=== PATIENT | female | born 1950 | race Caucasian/White ===

== ENCOUNTER → 2017-03-14 15:26 | Emergency (ER) | payer MEDICARE, BC ==
[~2017-03-14 15:26] MED LIST: HYDROcodone/ACETAMIN 5-325 MG* 1 TAB PO ONE; Ketorolac INJ* 30 MG/ML 1 ML VIAL IM ONE; oxyCODONE/Acetamin 5/325 MG* TAB PO ONE
--- NOTE | 2017-03-14 16:20 | ED ---
Complex/Multi-Sys Presentation - HPI Summary HPI Summary: 66 female presents with complaints of left wrist/lower arm and left knee pain that began after a fall that occurred around 8:30am this morning 03/14/17. Patient states she was walking off her porch and took a step however there was no step there. She fell landing on concrete on her left side. States any movement of her left knee causes her pain and her left wrist. Denies hitting her head and no LOC. Patient states the pain is a 9/10. Admits to swelling of left wrist. Denies chest pain, difficulty breathing, syncope and abdominal pain. No other complaints at this time. PMHx significant for HTN and arthritis. Has not taken any medications. Denies hip, neck and back pain. Is able to bear weight however when walking causes knee pain to increase. Denies numbness/ tingling. - History Of Current Complaint Chief Complaint: EDExtremityUpper Time Seen by Provider: 03/14/17 15:45 Hx Obtained From: Patient Onset/Duration: Sudden Onset, Still Present, Worse Since Timing: Constant Severity Currently: Moderate - no radiation Severity Initially: Moderate Location: Pain At: - left wrist and left knee Character: Sharp, Throbbing Aggravating Factor(s): moving Alleviating Factor(s): rest Associated Signs And Symptoms: Positive: Other - swelling of left wrist - Allergies/Home Medications Allergies/Adverse Reactions: Allergies Allergy/AdvReac Type Severity Reaction Status Date / Time No Known Allergies Allergy Verified 02/08/15 07:08 PMH/Surg Hx/FS Hx/Imm Hx Endocrine/Hematology History: Denies: Hx Diabetes Cardiovascular History: Reports: Hx Hypertension Denies: Hx Congestive Heart Failure History: Reports: Other Problems/Disorders - HEMATURIA Musculoskeletal History: Reports: Hx Arthritis - RIGHT FOOT, KNEE, LEG Denies: Hx Osteoporosis Sensory History: Reports: Hx Contacts or Glasses - READING GLASSES Denies: Hx Hearing Aid Opthamlomology History: Reports: Hx Contacts or Glasses - READING GLASSES - Cancer History Cancer Type, Location and Year: breast and kidney Hx Chemotherapy: Yes - KIDNEY Hx Radiation Therapy: Yes - BREAST - Surgical History Surgery Procedure, Year, and Place: 1978 uterine suspension, [facility] [place]. 2009 RT breast lumpectomy [place]. AUGUST 2014 LEFT NEPHRECTOMY Hx Anesthesia Reactions: No - Immunization History Immunizations Up to Date: Yes Infectious Disease History: No Infectious Disease History: Denies: Traveled Outside the [place] in Last 30 Days - Family History Known Family History: Positive: None - Social History Alcohol Use: None Alcohol Amount: 4 DRINKS/DAY Substance Use Type: Reports: None Smoking Status (MU): Heavy Every Day Tobacco Smoker Type: Cigarettes Amount Used/How Often: 1 PPD [id number] Length of Time of Smoking/Using Tobacco: 9 YRS Have You Smoked in the Last Year: Yes Review of Systems Constitutional: Negative Eyes: Negative ENT: Negative Cardiovascular: Negative Respiratory: Negative Gastrointestinal: Negative Positive: Arthralgia, Myalgia, Decreased ROM - left knee, Edema - left wrist Skin: Negative Neurological: Negative All Other Systems Reviewed And Are Negative: Yes Physical Exam Triage Information Reviewed: Yes Vital Signs On Initial Exam: Initial Vitals Temp Pulse Resp BP Pulse Ox 97.8 F 79 20 129/66 96 03/14/17 15:32 03/14/17 15:32 03/14/17 15:32 03/14/17 15:32 03/14/17 15:32 Vital Signs Reviewed: Yes Appearance: Positive: Well-Appearing, No Pain Distress, Well-Nourished Skin: Positive: Warm, Skin Color Reflects Adequate Perfusion, Dry. Negative: Cold, Numb, Soft, Erythema @ Head/Face: Positive: Normal Head/Face Inspection Eyes: Positive: Normal, Conjunctiva Clear ENT: Positive: Normal ENT inspection, Hearing grossly normal Neck: Positive: Supple, Nontender Respiratory/Lung Sounds: Positive: Clear to Auscultation, Breath Sounds Present. Negative: Rales, Rhonchi, Wheezes Cardiovascular: Positive: Normal, RRR, Pulses are Symmetrical in both Upper and Lower Extremities - 2+ pedal and radial. <2 seconds cap refill. Negative: Murmur, Rub Abdomen Description: Positive: Nontender, Soft Bowel Sounds: Positive: Present Musculoskeletal: Positive: Limited @ - left wrist and left knee with all directions due to pain, knee better with passive however wrist pain with any movement, Interruption @ - obvious deformity of distal radius/wrist area. crepitus, step off. no ecchymosis. edema of left wrist. elbow, forearm and shoulder normal. left knee normal without any deformity, ecchymosis, edema or step off., Pain @ - left wrist and left knee posteriorly, Edema Left - wrist, Other - rest of extremities/ right side/ neck / back normal exam without signs of trauma Neurological: Positive: Normal, Sensory/Motor Intact - sensation intact all extremities, Alert, Oriented to Person Place, Time, CN Intact II-III, Reflexes Intact, NV Bundle Intact Distally, Normal Gait Psychiatric: Positive: Affect/Mood Appropriate AVPU Assessment: Alert - Wilder Coma Scale Best Eye Response: 4 - Spontaneous Best Motor Response: 6 - Obeys Commands Best Verbal Response: 5 - Oriented Procedures - Splinting Location: left forearm Hand-Made Type: plaster Splint: sugar-tong Pre-Proc Neuro Vasc Exam: normal Post-Proc Neuro Vasc Exam: normal, unchanged from pre-exam Diagnostics - Vital Signs Vital Signs Temp Pulse Resp BP Pulse Ox 03/14/17 15:39 98.9 F 75 18 124/67 94 03/14/17 15:32 97.8 F 79 20 129/66 96 - Laboratory Lab Statement: Any lab studies that have been ordered have been reviewed, and results considered in the medical decision making process. - Radiology left elbow Xray Interpretation: No Acute Changes - NO ACUTE OSSEOUS INJURY. IF SYMPTOMS PERSIST, RECOMMEND REPEAT IMAGING. Radiology Interpretation Completed By: Radiologist left wrist Xray Interpretation: Positive (See Comments) - MINIMALLY DISPLACED COMMINUTED FRACTURE OF THE DISTAL RADIAL METAPHYSIS WITH ARTICULAR EXTENSION. OSTEOARTHRITIS. Radiology Interpretation Completed By: Radiologist left forearm Xray Interpretation: Positive (See Comments) - MINIMALLY DISPLACED FRACTURE OF THE DISTAL RADIUS Radiology Interpretation Completed By: Radiologist left knee Xray Interpretation: No Acute Changes - NO ACUTE OSSEOUS INJURY. IF SYMPTOMS PERSIST, RECOMMEND REPEAT IMAGING. Radiology Interpretation Completed By: Radiologist Re-Evaluation - Re-Evaluation First Eval Re-Evaluation Time: 17:31 Change: Improved - some relief after medicaiton however still in pain and discomfort Complex Multi-Symp Course/Dx Course Of Treatment: patient given norco for pain management as she has one kidney and refrained from IV and renal excreting drugs. had relief. x-rays obtained. all negative besides left forearm and wrist that showed a minimally displace distal radius fracture. was splinted with sugra tong splint without complication. normal neruo-vasc both before and after. follow up ortho. given sling for comfort. knee immobilizer to help with knee injury/pain until further imaging is obtained. possibly ligamentous/meniscal. given pain management for at home. RICE and follow up. Aware of worsening signs and symptoms to watch out for. - Diagnoses Differential Diagnoses/HQI/PQRI: Other - fracture, dislocation, sprain, strain Provider Diagnoses: Distal radius fracture, left Discharge - Discharge Plan Condition: Stable Disposition: HOME Prescriptions: HYDROcodone/ACETAMIN 5-325 MG* [[place] 5-325 TAB*] 1 tab PO Q4H PRN #15 tab MDD 3 PRN Reason: Pain Naproxen TAB* [Naprosyn 375 mg TAB*] 375 mg PO Q8H PRN #30 tab PRN Reason: Pain Patient Education Materials: Wrist Fracture in Adults (ED) Referrals: Javid Ceja MD [Primary Care Provider] - Jose Esparza MD [Medical Doctor] - Additional Instructions: Take prescribed medication to help with pain and inflammation. Take naproxen every 6-8 hours and norco in between doses. Take with food. Do not drive while taking this medication. Elevate ice and rest arm. Do not get splint wet. Wear sling for support. Make an appointment with orthopedic within the next couple of days. Follow up with PCP. If splint feels too tight or your develop worsening symptoms please seek medical attention promptly.
--- NOTE | 2017-03-14 17:03 | RAD ---
HISTORY: Left elbow injury COMPARISONS: None VIEWS: 3, Frontal, lateral, and oblique views of the left elbow FINDINGS: BONE DENSITY: There is diffuse osteopenia. BONES: There is no displaced fracture. JOINTS: There is no arthropathy. ALIGNMENT: There is no dislocation. SOFT TISSUES: Unremarkable. OTHER FINDINGS: None. IMPRESSION: NO ACUTE OSSEOUS INJURY. IF SYMPTOMS PERSIST, RECOMMEND REPEAT IMAGING.
--- NOTE | 2017-03-14 17:04 | RAD ---
HISTORY: Left forearm injury, trauma COMPARISONS: None VIEWS: 2, Frontal and lateral views of the left forearm FINDINGS: BONE DENSITY: There is diffuse osteopenia. BONES: There is a minimally displaced fracture of the distal radial metaphysis with articular extension. 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 SOFT TISSUES: Unremarkable. OTHER FINDINGS: None. IMPRESSION: MINIMALLY DISPLACED FRACTURE OF THE DISTAL RADIUS
--- NOTE | 2017-03-14 17:05 | RAD ---
HISTORY: Left wrist injury, trauma COMPARISONS: None VIEWS: 3, Frontal, lateral, and oblique views of the left wrist FINDINGS: BONE DENSITY: There is diffuse osteopenia. BONES: There is a minimally displaced, comminuted fracture of the distal radial metaphysis with articular extension. JOINTS: There is osteoarthritis of the first CMC and scaphoid-trapezium articulations ALIGNMENT: There is no dislocation. SOFT TISSUES: Unremarkable. OTHER FINDINGS: None. IMPRESSION: MINIMALLY DISPLACED COMMINUTED FRACTURE OF THE DISTAL RADIAL METAPHYSIS WITH ARTICULAR EXTENSION. OSTEOARTHRITIS.
--- NOTE | 2017-03-14 17:18 | RAD ---
HISTORY: Left knee injury COMPARISONS: None VIEWS: 4, Frontal, lateral, axial, and oblique views of the left knee FINDINGS: BONE DENSITY: Normal. BONES: There is no displaced fracture. JOINTS: There is mild tricompartmental osteoarthritis. There is no suprapatellar joint effusion or lipohemarthrosis. ALIGNMENT: There is no dislocation. SOFT TISSUES: Unremarkable. OTHER FINDINGS: None. IMPRESSION: NO ACUTE OSSEOUS INJURY. IF SYMPTOMS PERSIST, RECOMMEND REPEAT IMAGING.
[2017-03-14 18:15] VITALS: BP 146/79
== END | disposition home or self-care (01) ==
LOC: ED 15:26
DX: S52.502A Unspecified fracture of the lower end of left radius, initial encounter for closed fracture (principal); W19.XXXA Unspecified fall, initial encounter; Y93.9 Activity, unspecified; Y92.9 Unspecified place or not applicable; M19.032 Primary osteoarthritis, left wrist; M25.562 Pain in left knee; I10 Essential (primary) hypertension; Z85.3 Personal history of malignant neoplasm of breast; Z85.528 Personal history of other malignant neoplasm of kidney; Z90.5 Acquired absence of kidney; F17.210 Nicotine dependence, cigarettes, uncomplicated
CPT/HCPCS: 96372; 99282; A9270-GY

== ENCOUNTER 2017-10-30 06:45 | Day surgery (SDC) | payer MEDICARE, BC ==
[~2017-10-30 06:45] MED LIST changes: +Buffered Lidocaine 0.9% SYRIN* 5 ML/SYR SYRINGE INTRADERM ONE; -HYDROcodone/ACETAMIN 5-325 MG* 1 TAB PO ONE; -Ketorolac INJ* 30 MG/ML 1 ML VIAL IM ONE; +Sodium Citrate/Citric Acid* 15 ML UDC PO ONE; -oxyCODONE/Acetamin 5/325 MG* TAB PO ONE
[2017-10-30] MEDS ORDERED: Buffered Lidocaine 0.9% SYRIN* 5 ML/SYR SYRINGE ONE (07:10)
[2017-10-30] MEDS ORDERED: Lidocaine 2.5%/Prilocain 2.5%* 5 GM TUBE ONE (07:10)
--- NOTE | 2017-10-30 09:19 | RAD ---
PROCEDURE: Ultrasound-guided needle/wire localization of the left breast PREOPERATIVE DIAGNOSIS: Breast cancer POSTOPERATIVE DIAGNOSIS: Same COMPARISONS: October 04, 2012 LABEL REMOVER: Juli Tucker MD ANESTHESIA: Local anesthesia with 1% lidocaine without epinephrine FLUOROSCOPY TIME: None CONTRAST: None PROCEDURAL NARRATIVE: The procedure was explained to the patient who indicated understanding. Written and verbal informed consent was obtained. An opportunity was given to ask and answer questions. A timeout was performed. The patient was prepped and draped in the usual sterile fashion. Using ultrasound guidance, a needle/wire localization system was advanced to the target lesion in the left breast. Once position was confirmed, the needle was removed using pin pull technique. Post localization mammography was performed. The wound was dressed and the wire was secured. FINDINGS: Spot images of the straight wire within the hypoechoic nodule of the 7:00 position of the left breast. Post biopsy mammography demonstrates the hookwire neck in close proximity to the biopsy marker clip in the left lower breast.. SPECIMENS: Pending COMPLICATIONS: None DISPOSITION: The patient tolerated the procedure well, without complications during or immediately following the procedure. The patient was sent to the nuclear medicine suite in good, stable condition. IMPRESSION: TECHNICALLY SUCCESSFUL, UNCOMPLICATED ULTRASOUND-GUIDED WIRE LOCALIZATION OF THE LEFT BREAST. HISTOLOGY IS PENDING
[2017-10-30] MEDS ORDERED: ceFAZolin 2 GM in 100 MLS NS (*) BAG IVPB ONE (11:41)
[2017-10-30] MEDS ORDERED: Ketorolac INJ* 30 MG/ML 1 ML VIAL ONE (11:41)
[2017-10-30] MEDS ORDERED: Sodium Citrate/Citric Acid* 15 ML UDC ONE (11:44)
--- NOTE | 2017-10-30 11:51 | RAD ---
HISTORY: Breast cancer. Lymphoscintigraphy of the breast for the purposes of sentinel node identification. COMPARISONS: Mammogram dated October 30, 2012 TECHNIQUE: Previous imaging was reviewed. The procedure was explained to the patient who indicated that she understood. Written and verbal informed consent was obtained, with an opportunity to ask and answer questions. The breast was marked. A timeout was performed. The patient was prepped and draped in the usual sterile fashion. Technetium 99m sulfur colloid was administered in a subdermal fashion in 4 divided aliquots in a 180 degree arc along the areolar margin of the left breast, centered on the position of the primary breast lesion. Cine and planar imaging was performed. . DOSE: Technetium 99m sulfur colloid, 0.317 millicuries, injected at 9:05 AM October 30, 2017 FINDINGS: At 2 hours postinjection, there is no uptake localized within the left axilla. There is uptake noted along the inferior margin of the facet injection.. OTHER: None IMPRESSION: NO UPTAKE IS NOTED WITHIN THE LEFT AXILLA AT 2 HOURS POSTINJECTION.. CPT II Codes: 4396F1B
[2017-10-30] MEDS ORDERED: Methylene Blue 0.5 %* 50 MG/10 ML AMP IV ONE (12:24)
[2017-10-30] MEDS ORDERED: Bupivacaine 0.25% SDV* 30 ML ONE ×2 (12:24→13:28)
[2017-10-30] MEDS ORDERED: Lidocaine 1% INJ* 10 MG/ML 30 ML SDV ONE (12:28)
[2017-10-30] MEDS ORDERED: Bupivacaine 0.5% SDV PF* 10-30ML VIAL ONE (12:28)
[2017-10-30] MEDS ORDERED: Lidocaine 1% MPF wEPI 200,000* 30 ML SDV ONE (12:49)
[2017-10-30] MEDS ORDERED: fentaNYL* 50 MCG/ML 2 ML VIAL (100 MCG VIAL) ONE (13:20)
[2017-10-30] MEDS ORDERED: Midazolam* 1 MG/ML 2 ML VIAL (2 MG) ONE (13:20)
[2017-10-30] MEDS ORDERED: Propofol* 10 MG/ML 20 ML BTL IV PUSH ONE (13:21)
[2017-10-30] MEDS ORDERED: Lidocaine 2% PF * 5 ML VIAL ONE (13:21)
[2017-10-30] MEDS ORDERED: fentaNYL* 50 MCG/ML 2 ML VIAL (100 MCG VIAL) IV PRN (14:12)
[2017-10-30] MEDS ORDERED: Naloxone* 0.4 MG/ML 1 ML VIAL IV PRN (14:12)
[2017-10-30] MEDS ORDERED: DiMENhydriNATE IV* 50 MG/ML VIAL IV PUSH PRN (14:12)
[2017-10-30] MEDS ORDERED: oxyCODONE/Acetamin 5/325 MG* TAB PO PRN (15:30)
[2017-10-30] MEDS ORDERED: Levalbuterol 0.63MG/3ML NEB* UNIT OF USE INH ONE (16:11)
[2017-10-30 16:40] VITALS: BP 120/74
--- NOTE | 2017-10-31 13:33 | OP ---
CC: Kim Elder MD; Mikhail Wiley MD; Javid Ceja MD DATE OF OPERATION: 10/30/17 - [facility] DATE OF : 52 SURGEON: Jace Yadav MD BUSINESS SERVICES ASSOCIATE: ELIZABETH Darling ANESTHESIOLOGIST: Dr. Mathew. ANESTHESIA: General anesthetic, local infiltration. PRE-OP DIAGNOSIS: Carcinoma of the left breast. POST-OP DIAGNOSIS: Carcinoma of the left breast. OPERATIVE PROCEDURE: Needle localizing wide excision of left breast cancer with axillary node dissection (attempted sentinel node biopsy). DESCRIPTION OF PROCEDURE: The patient was supine on the operative table. After adequate the general anesthetic, compression stockings, Heidy Hugger warmers and intravenous antibiotics, the left breast was prepped with antiseptic , draped in a sterile fashion. (Note that prior to entering the operating room, the patient had subdermal injection of methylene blue 2 mL performed. She had a lot of pain with the injection, so this was curtailed at 2 mL; this was done intradermally). The patient was supine on the operative table and elliptical incision was created encompassing the guidewire and encompassing the site of the dermal injection and a piece of breast tissue was taken down to the fascia and sent fresh to x-ray, it was marked with the usual localizing sutures, it did appear to be close to the wire, so additional tissue one labeled additional deep medial and another labeled additional superior or anterior medial were taken and sent separately as well. Hemostasis was obtained using electrocautery and closure accomplished with 3-0 and 5-0 Vicryl followed by Steri-Strips. Attention was then turned to the axilla, approximately 4- cm incision was created. Dissection was carried down to the axillary fat pad. Inspection was carried out. No identification of blue dye could be accomplished; therefore, it was decided that axillary dissection would be carried out. This was carried out without difficulty. The nerves were kept out of harm's way. Specimen was sent in formalin for pathologic evaluation, labeled axillary contents. Local anesthetic was administered and closure accomplished using 3-0 and 5-0 Vicryl followed by Steri-Strips. She tolerated the procedure well, was awakened and brought to Recovery in good condition. No complications. No drains. Pathologic specimens were as enumerated above. Sponge and instrument counts were correct. Estimated blood loss 50 mL. [id number]/[facility] #: [id number] [facility] [place] [facility]
== END 2017-10-30 16:42 | disposition home or self-care (01) ==
LOC: SDS 06:45
PROVIDERS: ATTEND Surgery
DX: C50.512 Malignant neoplasm of lower-outer quadrant of left female breast (principal); F17.210 Nicotine dependence, cigarettes, uncomplicated; F41.8 Other specified anxiety disorders; Z85.528 Personal history of other malignant neoplasm of kidney; M81.0 Age-related osteoporosis without current pathological fracture
CPT/HCPCS: 77061; 78195; 88307; A9270-GY; A9541; G0279; J1885; J2001; J2250; J2704; J3010; J7614

== ENCOUNTER 2020-04-15 09:04 | Inpatient (IN) ==
[2020-04-15] MEDS ORDERED: HYDROcodone/ACETAMIN 5/325 mg TAB PO ONE (11:20)
[2020-04-15 13:03] LABS: ABS Lymphocytes 0.8 10^3/ul (1.0-4.8); ABS Monocytes 0.4 10^3/ul (0-0.8); Eosinophil % 0.5 %; Hematocrit 37 % (35-47); Lymphocyte % 10.6 %; Mean Corpuscular HGB Conc 35 g/dL (31-36); Mean Corpuscular Hemoglobin 37 pg (27-31); Mean Corpuscular Volume 105 fL (80-97); Mean Platelet Volume 7.3 fL (7.4-10.4); Nucleated Red Blood Cells % 0.1; Platelet Count 367 10^3/uL (150-450); Red Blood Count 3.56 10^6 /uL (3.70-4.87); Red Cell Distribution Width 15 % (10-15); White Blood Count 7.3 10^3/uL (3.5-10.8)
[2020-04-15 13:25] LABS: Albumin 3.7 g/dL (3.2-5.2); Albumin/Globulin Ratio 1.4 (1-3); BUN/Creatinine Ratio 11.4 (8-20); C Reactive Protein 18.5 mg/L (<8.01); Calcium 9.8 mg/dL (8.6-10.3); EGFR African American 63.1 (>60); EGFR Non-African American 52.1 (>60); Globulin 2.7 g/dL (2-4); Potassium 4.5 mmol/L (3.5-5.0); Total Bilirubin 0.5 mg/dL (0.2-1.0); Total Protein 6.4 g/dL (6.4-8.9)
[2020-04-15] MEDS ORDERED: Morphine 2 MG/ML SYRINGE IV PRN (13:52)
[2020-04-15] MEDS ORDERED: Al Hydrox/Mg Hydrox/Simet LIQ 30 ML UDC PO PRN (13:52)
[2020-04-15] MEDS ORDERED: Albuterol 2.5mg/3 ml (0.083%) NEB.SOLN INH PRN (13:52)
[2020-04-15] MEDS: Nicotine PATCH 21 MG/24 HR PATCH TRANSDERM SCH (14:09)
[2020-04-15] MEDS: Multivitamins/Minerals TAB PO SCH (14:21)
[2020-04-15] MEDS: oxyCODONE/Acetamin 5/325 mg TAB PO PRN (16:14)
[2020-04-15] MEDS: Heparin 5000 UNITS/ML 1 mL VIAL SUBCUT SCH ×2 (16:15→21:51)
[2020-04-15] MEDS ORDERED: Gadoteridol (CONTRAST) 279.3 MG/ML 10 ML IV ONE (19:53)
[2020-04-16] MEDS: Heparin 5000 UNITS/ML 1 mL VIAL SUBCUT SCH ×3 (05:54→21:15)
[2020-04-16] MEDS: Nicotine PATCH 21 MG/24 HR PATCH TRANSDERM SCH (09:03)
[2020-04-16] MEDS: Cholecalciferol (VIT D3) 1,000 unit TAB PO SCH (09:03)
[2020-04-16] MEDS: Multivitamins/Minerals TAB PO SCH (09:03)
[2020-04-16] MEDS: Venlafaxine XR 75 mg PO SCH (09:03)
[2020-04-16] MEDS: CMCS: Letrozole 2.5 MG TAB (NF) PO SCH (12:11)
[2020-04-16] MEDS: oxyCODONE/Acetamin 5/325 mg TAB PO PRN (14:16)
[2020-04-16] MEDS ORDERED: oxyCODONE/Acetamin 5/325 mg TAB PO ONE (14:19)
[2020-04-17] MEDS: Heparin 5000 UNITS/ML 1 mL VIAL SUBCUT SCH (05:12)
[2020-04-17 06:09] LABS: BUN/Creatinine Ratio 16.8 (8-20); Calcium 9.7 mg/dL (8.6-10.3); EGFR African American 61.7 (>60); Potassium 4.7 mmol/L (3.5-5.0)
[2020-04-17 06:36] LABS: ABS Basophils 0.2 10^3/ul (0-0.2); ABS Eosinophils 0.1 10^3/ul (0-0.6); ABS Lymphocytes 0.8 10^3/ul (1.0-4.8); ABS Monocytes 0.4 10^3/ul (0-0.8); ABS Neutrophils 2.6 10^3/ul (1.5-7.7); Eosinophil % 2.8 %; Hematocrit 36 % (35-47); Hemoglobin 12.4 g/dL (12.0-16.0); Lymphocyte % 19.6 %; Mean Corpuscular HGB Conc 34 g/dL (31-36); Mean Corpuscular Hemoglobin 36 pg (27-31); Mean Corpuscular Volume 106 fL (80-97); Mean Platelet Volume 7.7 fL (7.4-10.4); Nucleated Red Blood Cells % 0.1; Platelet Count 289 10^3/uL (150-450); Red Blood Count 3.41 10^6 /uL (3.70-4.87); Red Cell Distribution Width 15 % (10-15)
[2020-04-17] MEDS: Cholecalciferol (VIT D3) 1,000 unit TAB PO SCH (08:59)
[2020-04-17] MEDS: oxyCODONE/Acetamin 5/325 mg TAB PO PRN ×4 (08:59→21:49)
[2020-04-17] MEDS: Multivitamins/Minerals TAB PO SCH (08:59)
[2020-04-17] MEDS: CMCS: Letrozole 2.5 MG TAB (NF) PO SCH (09:00)
[2020-04-17] MEDS: Nicotine PATCH 21 MG/24 HR PATCH TRANSDERM SCH (09:00)
[2020-04-17] MEDS: Venlafaxine XR 75 mg PO SCH (09:00)
[2020-04-17] MEDS: Enoxaparin 40 MG/0.4 ML SYR SUBCUT SCH (20:45)
[2020-04-18] MEDS: oxyCODONE/Acetamin 5/325 mg TAB PO PRN (10:02)
[2020-04-18] MEDS: Venlafaxine XR 75 mg PO SCH (10:03)
[2020-04-18] MEDS: Cholecalciferol (VIT D3) 1,000 unit TAB PO SCH (10:04)
[2020-04-18] MEDS: Multivitamins/Minerals TAB PO SCH (10:04)
[2020-04-18] MEDS: CMCS: Letrozole 2.5 MG TAB (NF) PO SCH (10:04)
[2020-04-18] MEDS: Nicotine PATCH 21 MG/24 HR PATCH TRANSDERM SCH (10:06)
[2020-04-18] MEDS: Enoxaparin 40 MG/0.4 ML SYR SUBCUT SCH (20:24)
[2020-04-19 06:43] LABS: Calcium 9.9 mg/dL (8.6-10.3); EGFR African American 66.7 (>60); EGFR Non-African American 55.1 (>60); Potassium 4.9 mmol/L (3.5-5.0)
[2020-04-19] MEDS: Cholecalciferol (VIT D3) 1,000 unit TAB PO SCH (09:22)
[2020-04-19] MEDS: CMCS: Letrozole 2.5 MG TAB (NF) PO SCH (09:22)
[2020-04-19] MEDS: Venlafaxine XR 75 mg PO SCH (09:22)
[2020-04-19] MEDS: Multivitamins/Minerals TAB PO SCH (09:22)
[2020-04-19] MEDS: Nicotine PATCH 21 MG/24 HR PATCH TRANSDERM SCH (09:27)
[2020-04-19 11:13] VITALS: BP 132/72
== END 2020-04-19 14:50 | disposition home health service (06) | DRG 544 ==
LOC: MED 09:04 → ED 09:04 → MED 16:06
PROVIDERS: ADMIT Internal Medicine; ATTEND Internal Medicine

== ENCOUNTER 2022-06-04 13:17 | Inpatient (IN) ==
[2022-06-04] MEDS ORDERED: fentaNYL 100 mcg/2 ml 50 MCG/ML VIAL IV SLOW PU ONE ×2 (13:41→14:05)
[2022-06-04 15:30] LABS: Hematocrit 44 % (35-47); Hemoglobin 15.2 g/dL (12.0-16.0); Mean Corpuscular HGB Conc 35 g/dL (31-36); Mean Corpuscular Hemoglobin 37 pg (27-31); Mean Corpuscular Volume 106 fL (80-97); Mean Platelet Volume 7.9 fL (7.4-10.4); Platelet Count 274 10^3/uL (150-450); Red Blood Count 4.16 10^6 /uL (3.70-4.87); Red Cell Distribution Width 13 % (10-15)
[2022-06-04 15:32] LABS: INR 0.89 (0.89-1.11)
[2022-06-04 15:52] LABS: ABS Lymphocytes 0.4 10^3/ul (1.0-4.8); ABS Monocytes 0.6 10^3/ul (0-0.8); ABS Neutrophils 7.9 10^3/ul (1.5-7.7); Lymphocyte % 4.8 %
[2022-06-04 15:54] LABS: Macrocytosis 1+
[2022-06-04 16:10] LABS: Albumin 3.9 g/dL (3.2-5.2); Albumin/Globulin Ratio 1.4 (1-3); Calcium 9.9 mg/dL (8.6-10.3); Globulin 2.7 g/dL (2-4); Potassium 4.6 mmol/L (3.5-5.0); Total Bilirubin 0.6 mg/dL (0.2-1.0); Total Protein 6.6 g/dL (6.4-8.9); eGFR CKD-EPI 97.1 (>60)
[2022-06-04] MEDS ORDERED: Magnesium Hydroxide LIQ 30 ML UDC PO PRN (16:18)
[2022-06-04] MEDS: Enoxaparin 40 MG/0.4 ML SYR SUBCUT SCH (17:02)
[2022-06-04] MEDS: Ondansetron 4 mg VIAL 2 MG/ML 2 ml VIAL IV PRN ×2 (17:02→21:11)
[2022-06-04] MEDS: oxyCODONE/Acetamin 5/325 mg TAB PO PRN (18:42)
[2022-06-04] MEDS: Acetaminophen IV 1 GM/100ML 1,000 MG/100 ML BAG IV PRN (23:42)
[2022-06-05] MEDS: Acetaminophen IV 1 GM/100ML 1,000 MG/100 ML BAG IV PRN ×2 (06:18→22:57)
[2022-06-05 06:34] LABS: ABS Lymphocytes 0.5 10^3/ul (1.0-4.8); ABS Monocytes 0.5 10^3/ul (0-0.8); ABS Neutrophils 4.8 10^3/ul (1.5-7.7); Eosinophil % 0.2 %; Hematocrit 42 % (35-47); Hemoglobin 14.4 g/dL (12.0-16.0); Lymphocyte % 8.1 %; Mean Corpuscular HGB Conc 35 g/dL (31-36); Mean Corpuscular Hemoglobin 37 pg (27-31); Mean Corpuscular Volume 106 fL (80-97); Mean Platelet Volume 7.9 fL (7.4-10.4); Platelet Count 228 10^3/uL (150-450); Red Blood Count 3.91 10^6 /uL (3.70-4.87); Red Cell Distribution Width 13 % (10-15); White Blood Count 5.9 10^3/uL (3.5-10.8)
[2022-06-05 06:48] LABS: Potassium 4.5 mmol/L (3.5-5.0); eGFR CKD-EPI 85.1 (>60)
[2022-06-05] MEDS: Venlafaxine XR 75 mg PO SCH (08:40)
[2022-06-05] MEDS: Enoxaparin 40 MG/0.4 ML SYR SUBCUT SCH (16:34)
[2022-06-05] MEDS ORDERED: ceFAZolin 2 GM in NS PREMIX 2 GM/100 ML BAG IVPB ONE (17:15)
[2022-06-05] MEDS ORDERED: Propofol 10 MG/ML 20 ML BTL ONE (17:20)
[2022-06-05] MEDS ORDERED: Lidocaine 2% PF 5 ML VIAL ONE (17:20)
[2022-06-05] MEDS ORDERED: fentaNYL 250 mcg/5 ml 50 MCG/ML 5 ml VIAL (250 MCG) ONE (17:20)
[2022-06-05] MEDS ORDERED: Midazolam 2 mg/2 ml VIAL 1 mg/ml 2 ml VIAL (2 mg) ONE (17:20)
[2022-06-05] MEDS ORDERED: Ondansetron 4 mg VIAL 2 MG/ML 2 ml VIAL ONE (17:26)
[2022-06-05] MEDS ORDERED: Dexamethasone IV 4 MG/ML VIAL 1 ml VIAL ONE (17:26)
[2022-06-05] MEDS ORDERED: Rocuronium 50 mg VIAL 10 mg/ml 5 ml VIAL (50 mg) ONE (17:40)
[2022-06-05] MEDS ORDERED: Phenylephrine 40 mcg/mL 10mL (400mcg) SYRINGE ONE (17:43)
[2022-06-05] MEDS ORDERED: HYDROmorphone 1 MG/1 ML SYRINGE IV PRN (18:15)
[2022-06-05] MEDS ORDERED: fentaNYL 100 mcg/2 ml 50 MCG/ML VIAL IV PRN (18:15)
[2022-06-05] MEDS ORDERED: Ondansetron 4 mg VIAL 2 MG/ML 2 ml VIAL IV PRN (18:15)
[2022-06-05] MEDS ORDERED: Naloxone 0.4 mg VIAL 0.4 mg/ml 1 ml VIAL IV PRN (18:15)
[2022-06-05] MEDS ORDERED: Acetaminophen IV 1 GM/100ML 1,000 MG/100 ML BAG IV ONE (19:18)
[2022-06-05] MEDS ORDERED: Vancomycin 1,000 MG VIAL ONE (19:48)
[2022-06-05] MEDS ORDERED: HYDROmorphone 1 MG/1 ML SYRINGE ONE (21:24)
[2022-06-06] MEDS: oxyCODONE/Acetamin 5/325 mg TAB PO PRN ×3 (02:13→18:14)
[2022-06-06] MEDS: ceFAZolin 1 GM X 3 DOSES POST-OP Q8H (AddVan) IVPB SCH ×3 (02:13→18:12)
[2022-06-06] MEDS: Nicotine PATCH 21 MG/24 HR PATCH TRANSDERM SCH (08:48)
[2022-06-06] MEDS: Venlafaxine XR 75 mg PO SCH (08:48)
[2022-06-06] MEDS: Enoxaparin 40 MG/0.4 ML SYR SUBCUT SCH (08:48)
[2022-06-06] MEDS ORDERED: Senna TAB 8.6 mg TAB PO PRN (16:32)
[2022-06-06] MEDS: Acetaminophen IV 1 GM/100ML 1,000 MG/100 ML BAG IV PRN (21:06)
[2022-06-07] MEDS: oxyCODONE/Acetamin 5/325 mg TAB PO PRN ×2 (02:19→08:00)
[2022-06-07 06:49] LABS: Hematocrit 33 % (35-47); Mean Corpuscular HGB Conc 34 g/dL (31-36); Mean Corpuscular Hemoglobin 36 pg (27-31); Mean Corpuscular Volume 108 fL (80-97); Mean Platelet Volume 8.2 fL (7.4-10.4); Platelet Count 201 10^3/uL (150-450); Red Blood Count 3.06 10^6 /uL (3.70-4.87); Red Cell Distribution Width 13 % (10-15); White Blood Count 4.1 10^3/uL (3.5-10.8)
[2022-06-07 07:43] VITALS: BP 121/68
[2022-06-07] MEDS: Nicotine PATCH 21 MG/24 HR PATCH TRANSDERM SCH (07:59)
[2022-06-07] MEDS: Venlafaxine XR 75 mg PO SCH (07:59)
[2022-06-07] MEDS: Enoxaparin 40 MG/0.4 ML SYR SUBCUT SCH (08:00)
== END 2022-06-07 07:21 | DRG 481 ==
LOC: ED 13:17 → EDHOLD 16:18 → SUATTDRO 16:18 → SSU 19:15
PROVIDERS: ADMIT Internal Medicine; ATTEND Hospitalist

== ENCOUNTER 2022-06-07 07:27 | Inpatient (IN) ==
[2022-06-07] MEDS: oxyCODONE/Acetamin 5/325 mg TAB PO PRN ×2 (13:05→21:02)
[2022-06-07] MEDS: Senna TAB 8.6 mg TAB PO PRN (21:02)
[2022-06-08] MEDS: oxyCODONE/Acetamin 5/325 mg TAB PO PRN ×2 (07:27→20:53)
[2022-06-08] MEDS: Magnesium Hydroxide LIQ 30 ML UDC PO PRN (07:28)
[2022-06-08] MEDS: Venlafaxine XR 75 mg PO SCH (07:28)
[2022-06-08] MEDS: Enoxaparin 40 MG/0.4 ML SYR SUBCUT SCH (07:42)
[2022-06-08] MEDS ORDERED: Influenza vaccine *QUAD* *2022-23* 0.5 ML SYRINGE IM ONE (09:00)
[2022-06-09 06:49] LABS: ALT 17 U/L (7-52); Albumin 3.1 g/dL (3.2-5.2); Albumin/Globulin Ratio 1.2 (1-3); Alkaline Phosphatase 74 U/L (35-149); Blood Urea Nitrogen 8 mg/dL (6-24); CO2 Carbon Dioxide 30 mmol/L (22-32); Calcium 9.8 mg/dL (8.6-10.3); Chloride 102 mmol/L (101-111); Globulin 2.6 g/dL (2-4); Glucose 99 mg/dL (70-100); Sodium 137 mmol/L (135-145); Total Protein 5.7 g/dL (6.4-8.9); eGFR CKD-EPI 94.8 (>60)
[2022-06-09 07:26] LABS: ABS Eosinophils 0.1 10^3/ul (0-0.6); ABS Lymphocytes 0.5 10^3/ul (1.0-4.8); ABS Monocytes 0.4 10^3/ul (0-0.8); ABS Neutrophils 3.1 10^3/ul (1.5-7.7); Eosinophil % 1.5 %; Hematocrit 34 % (35-47); Hemoglobin 11.4 g/dL (12.0-16.0); Lymphocyte % 12.8 %; Mean Corpuscular HGB Conc 34 g/dL (31-36); Mean Corpuscular Hemoglobin 37 pg (27-31); Mean Corpuscular Volume 108 fL (80-97); Mean Platelet Volume 8.1 fL (7.4-10.4); Nucleated Red Blood Cells % 0.1; Platelet Count 275 10^3/uL (150-450); Red Blood Count 3.12 10^6 /uL (3.70-4.87); Red Cell Distribution Width 13 % (10-15); White Blood Count 4.2 10^3/uL (3.5-10.8)
[2022-06-09] MEDS: oxyCODONE/Acetamin 5/325 mg TAB PO PRN ×3 (08:09→20:57)
[2022-06-09] MEDS: Venlafaxine XR 75 mg PO SCH (08:09)
[2022-06-09] MEDS: Enoxaparin 40 MG/0.4 ML SYR SUBCUT SCH (08:10)
[2022-06-09 11:20] LABS: Anion Gap 5 mmol/L (2-11)
[2022-06-09] MEDS: Nicotine PATCH 14 MG/24 HR PATCH TRANSDERM SCH (12:10)
[2022-06-09 13:50] LABS: Potassium Redraw 4.4 mmol/L (3.5-5.0)
[2022-06-09] MEDS: Senna TAB 8.6 mg TAB PO PRN (20:59)
[2022-06-10] MEDS: oxyCODONE/Acetamin 5/325 mg TAB PO PRN ×4 (01:54→20:43)
[2022-06-10] MEDS: Venlafaxine XR 75 mg PO SCH (08:45)
[2022-06-10] MEDS: Enoxaparin 40 MG/0.4 ML SYR SUBCUT SCH (08:46)
[2022-06-10] MEDS: Nicotine PATCH 14 MG/24 HR PATCH TRANSDERM SCH (08:47)
[2022-06-10] MEDS: Senna TAB 8.6 mg TAB PO PRN (20:44)
[2022-06-11] MEDS: oxyCODONE/Acetamin 5/325 mg TAB PO PRN (08:18)
[2022-06-11] MEDS: Nicotine PATCH 14 MG/24 HR PATCH TRANSDERM SCH (08:20)
[2022-06-11] MEDS: Enoxaparin 40 MG/0.4 ML SYR SUBCUT SCH (08:24)
[2022-06-11] MEDS: Venlafaxine XR 75 mg PO SCH (08:25)
[2022-06-12] MEDS: oxyCODONE/Acetamin 5/325 mg TAB PO PRN ×2 (09:14→20:50)
[2022-06-12] MEDS: Venlafaxine XR 75 mg PO SCH (09:14)
[2022-06-12] MEDS: Enoxaparin 40 MG/0.4 ML SYR SUBCUT SCH (09:18)
[2022-06-12] MEDS: Nicotine PATCH 14 MG/24 HR PATCH TRANSDERM SCH (09:19)
[2022-06-13] MEDS: oxyCODONE/Acetamin 5/325 mg TAB PO PRN ×3 (05:37→20:44)
[2022-06-13] MEDS: Venlafaxine XR 75 mg PO SCH (07:33)
[2022-06-13] MEDS: Enoxaparin 40 MG/0.4 ML SYR SUBCUT SCH (07:34)
[2022-06-13] MEDS: Nicotine PATCH 14 MG/24 HR PATCH TRANSDERM SCH (07:37)
[2022-06-13] MEDS: Senna TAB 8.6 mg TAB PO PRN (20:44)
[2022-06-14] MEDS: oxyCODONE/Acetamin 5/325 mg TAB PO PRN ×5 (00:36→23:39)
[2022-06-14] MEDS: Venlafaxine XR 75 mg PO SCH (07:41)
[2022-06-14] MEDS: Enoxaparin 40 MG/0.4 ML SYR SUBCUT SCH (07:43)
[2022-06-14] MEDS: Nicotine PATCH 14 MG/24 HR PATCH TRANSDERM SCH (07:43)
[2022-06-15] MEDS: oxyCODONE/Acetamin 5/325 mg TAB PO PRN ×2 (07:45→19:26)
[2022-06-15] MEDS: Enoxaparin 40 MG/0.4 ML SYR SUBCUT SCH (08:45)
[2022-06-15] MEDS: Nicotine PATCH 14 MG/24 HR PATCH TRANSDERM SCH (08:46)
[2022-06-15] MEDS: Venlafaxine XR 75 mg PO SCH (08:50)
[2022-06-16] MEDS: oxyCODONE/Acetamin 5/325 mg TAB PO PRN ×3 (02:56→15:09)
[2022-06-16 06:48] LABS: ABS Basophils 0.1 10^3/ul (0-0.2); ABS Eosinophils 0.1 10^3/ul (0-0.6); ABS Lymphocytes 0.7 10^3/ul (1.0-4.8); ABS Monocytes 0.3 10^3/ul (0-0.8); ABS Neutrophils 3.2 10^3/ul (1.5-7.7); Eosinophil % 2.2 %; Hematocrit 34 % (35-47); Hemoglobin 11.6 g/dL (12.0-16.0); Lymphocyte % 16.1 %; Mean Corpuscular HGB Conc 34 g/dL (31-36); Mean Corpuscular Hemoglobin 37 pg (27-31); Mean Corpuscular Volume 107 fL (80-97); Mean Platelet Volume 7.2 fL (7.4-10.4); Nucleated Red Blood Cells % 0.1; Platelet Count 435 10^3/uL (150-450); Red Blood Count 3.16 10^6 /uL (3.70-4.87); Red Cell Distribution Width 14 % (10-15); White Blood Count 4.4 10^3/uL (3.5-10.8)
[2022-06-16 07:44] LABS: Albumin 3.4 g/dL (3.2-5.2); Albumin/Globulin Ratio 1.4 (1-3); Calcium 9.7 mg/dL (8.6-10.3); Globulin 2.4 g/dL (2-4); Potassium 4.6 mmol/L (3.5-5.0); Total Bilirubin 0.5 mg/dL (0.2-1.0); Total Protein 5.8 g/dL (6.4-8.9); eGFR CKD-EPI 92.7 (>60)
[2022-06-16] MEDS: Venlafaxine XR 75 mg PO SCH (07:48)
[2022-06-16] MEDS: Nicotine PATCH 14 MG/24 HR PATCH TRANSDERM SCH (07:49)
[2022-06-16] MEDS: Enoxaparin 40 MG/0.4 ML SYR SUBCUT SCH (07:51)
[2022-06-16] MEDS: Magnesium Hydroxide LIQ 30 ML UDC PO PRN ×2 (12:50→20:46)
[2022-06-16] MEDS: Senna TAB 8.6 mg TAB PO PRN (20:47)
[2022-06-17] MEDS: Venlafaxine XR 75 mg PO SCH (08:01)
[2022-06-17] MEDS: Nicotine PATCH 14 MG/24 HR PATCH TRANSDERM SCH (08:02)
[2022-06-17] MEDS: Enoxaparin 40 MG/0.4 ML SYR SUBCUT SCH (08:04)
[2022-06-18] MEDS: oxyCODONE/Acetamin 5/325 mg TAB PO PRN ×2 (03:32→22:45)
[2022-06-18] MEDS: Venlafaxine XR 75 mg PO SCH (07:42)
[2022-06-18] MEDS: Enoxaparin 40 MG/0.4 ML SYR SUBCUT SCH (07:44)
[2022-06-18] MEDS: Nicotine PATCH 14 MG/24 HR PATCH TRANSDERM SCH (09:01)
[2022-06-19] MEDS: oxyCODONE/Acetamin 5/325 mg TAB PO PRN ×2 (03:46→14:06)
[2022-06-19] MEDS: Nicotine PATCH 14 MG/24 HR PATCH TRANSDERM SCH (08:01)
[2022-06-19] MEDS: Venlafaxine XR 75 mg PO SCH (08:01)
[2022-06-19] MEDS: Enoxaparin 40 MG/0.4 ML SYR SUBCUT SCH (08:01)
[2022-06-20] MEDS: Enoxaparin 40 MG/0.4 ML SYR SUBCUT SCH (08:10)
[2022-06-20] MEDS: Venlafaxine XR 75 mg PO SCH (08:14)
[2022-06-20] MEDS: Nicotine PATCH 14 MG/24 HR PATCH TRANSDERM SCH (09:42)
[2022-06-21] MEDS: Nicotine PATCH 14 MG/24 HR PATCH TRANSDERM SCH (08:50)
[2022-06-21] MEDS: Venlafaxine XR 75 mg PO SCH (08:53)
[2022-06-21] MEDS: Enoxaparin 40 MG/0.4 ML SYR SUBCUT SCH (08:56)
[2022-06-21] MEDS: oxyCODONE/Acetamin 5/325 mg TAB PO PRN (21:58)
[2022-06-22] MEDS: oxyCODONE/Acetamin 5/325 mg TAB PO PRN ×2 (03:27→09:11)
[2022-06-22] MEDS: Enoxaparin 40 MG/0.4 ML SYR SUBCUT SCH (09:13)
[2022-06-22] MEDS: Nicotine PATCH 14 MG/24 HR PATCH TRANSDERM SCH (09:13)
[2022-06-22] MEDS: Venlafaxine XR 75 mg PO SCH (09:18)
[2022-06-22] MEDS: Senna TAB 8.6 mg TAB PO PRN (19:49)
[2022-06-23 06:21] VITALS: BP 141/86
[2022-06-23 07:09] LABS: ABS Basophils 0.1 10^3/ul (0-0.2); ABS Eosinophils 0.1 10^3/ul (0-0.6); ABS Lymphocytes 0.9 10^3/ul (1.0-4.8); ABS Monocytes 0.4 10^3/ul (0-0.8); ABS Neutrophils 2.7 10^3/ul (1.5-7.7); Eosinophil % 2.3 %; Hematocrit 38 % (35-47); Mean Corpuscular HGB Conc 34 g/dL (31-36); Mean Corpuscular Hemoglobin 37 pg (27-31); Mean Corpuscular Volume 107 fL (80-97); Mean Platelet Volume 7.9 fL (7.4-10.4); Nucleated Red Blood Cells % 0.1; Platelet Count 436 10^3/uL (150-450); Red Blood Count 3.56 10^6 /uL (3.70-4.87); Red Cell Distribution Width 13 % (10-15); White Blood Count 4.2 10^3/uL (3.5-10.8)
[2022-06-23 07:34] LABS: Albumin 3.9 g/dL (3.2-5.2); Albumin/Globulin Ratio 1.4 (1-3); Calcium 10.5 mg/dL (8.6-10.3); Globulin 2.8 g/dL (2-4); Potassium 4.5 mmol/L (3.5-5.0); Total Bilirubin 0.5 mg/dL (0.2-1.0); Total Protein 6.7 g/dL (6.4-8.9); eGFR CKD-EPI 87.9 (>60)
[2022-06-23] MEDS: Enoxaparin 40 MG/0.4 ML SYR SUBCUT SCH (08:07)
[2022-06-23] MEDS: Venlafaxine XR 75 mg PO SCH (08:07)
[2022-06-23] MEDS: Nicotine PATCH 14 MG/24 HR PATCH TRANSDERM SCH (08:08)
== END 2022-06-23 14:15 | disposition home health service (06) | DRG 561 ==
LOC: PMRU 10:00
PROVIDERS: ADMIT Physical Medicine & Rehabilitation; ATTEND Physical Medicine & Rehabilitation